=== PATIENT | male | born 1980 | race Caucasian/White ===

== ENCOUNTER → 2017-03-16 | Day surgery (SDC) | payer OTHER ==
[~2017-03-16] VITALS: Ht 182.9 cm; Wt 205.6 kg
[~2017-03-16] MED LIST: AMOXICILLIN500 MG PO; BYSTOLIC10 MG PO; LISINOPRIL-HCT1 EAC2 PO; NORCO 5-325 TA1 EACH PO; ULTRAM50 MG PO
--- NOTE | ~2017-03-16 | OR ---
PATIENT'S NAME: COLLIN BELLA [facility] AGE: 37 Y [address] ROOM: [place] [address] LOCATION: [facility] [place] ADMIT DATE: 03/16/2017 OR/Procedure Report DISCHARGE DATE: FAMILY PHYSICIAN: Geoffrey Rivas MD ATTENDING PHYSICIAN: Srini Garrett SURGEON: Srini Garrett MD RN COMPLIANCE: Sergey Paul PA-C. DATE OF PROCEDURE: 03/16/2017 PREOPERATIVE DIAGNOSIS: Recurrent incarcerated ventral hernia. POSTOPERATIVE DIAGNOSIS: Recurrent incarcerated ventral hernia. PROCEDURE: Robotic repair of recurrent incarcerated ventral hernia. FINDINGS: There were 2 defects present that appeared to be both superior and inferior to his previous repair. There was omentum incarcerated. A soft tissue density was also found of unclear etiology potentially representing previous surgical changes. This was excised. There was some concerns for infected material here, although after removal this did not appear grossly infected. ESTIMATED BLOOD LOSS: Less than 50 mL. COMPLICATIONS: None. INDICATIONS: The patient is a 37-year-old male, who has had previous laparoscopic surgery. He developed ventral hernia. This had apparently been repaired with mesh and this was in the periumbilical region. He had presented with pain with palpable hernia defect. We discussed repair with the patient, the risks, benefits, and alternatives including, but not limited to, bleeding, infection, mesh infection, bowel injury. He understood the risks and elected to proceed. DESCRIPTION OF PROCEDURE: The patient was taken to the operating room. He was supine, he was given IV sedation, subsequently intubated. His abdomen was prepped with ChloraPrep and sterilely draped. Using a Veress needle, the abdominal cavity was entered in the left upper quadrant, and after a small stab incision was created, pneumoperitoneum was induced. Needle placement was somewhat difficult due to his obesity. After pneumoperitoneum was induced, we introduced an 8 mm trocar in the left upper quadrant. We had some difficulty in initial placement. The camera was inserted and there did not appear to be injury to the bowel. Following this, 2 more trocars were positioned, an 8 mm mid abdominal or left mid abdominal and a 12 mm left lower quadrant port. The skin overlying the peritoneum was first anesthetized prior to making these PATIENT'S NAME: COLLIN BELLA [facility] AGE: 37 Y [address] ROOM: [place] [address] LOCATION: [facility] [place] ADMIT DATE: 03/16/2017 OR/Procedure Report DISCHARGE DATE: FAMILY PHYSICIAN: Geoffrey Rivas MD ATTENDING PHYSICIAN: Srini Garrett. These trocars were inserted under direct visualization. The robot was docked. Our working space was targeted with a camera grasper and scissors were inserted as well as a grasper. The hernia defect was immediately evident. There appeared to be omentum present within this. We were able to dissect around this circumferentially, slowly incising adhesions, ultimately able to reduce this, however, somewhat difficult on. Beginning the reduction process, there was a soft tissue density present. On grasping this, a small amount of aqknu-xq-aklaus material present initially concerning for a bowel injury; however, there was no bowel in the adhesions to this. The omentum was freed from this and ultimately a soft tissue density was present. This was quite firm, it was excised, placed in an EndoCatch bag, and brought up to the left lower quadrant trocar. This was opened and inspected on the back table. It did not appear to be grossly infected, potentially representing fat necrosis from previous operations, this was sent for pathology as well as cultures but with the initial appearance of the material, we were concerned about infection but after inspection on the back table, this did not appear grossly inspected. Because of this, we felt we could still place mesh. Once the contents were reduced, we selected an [address] hernia mesh. This was introduced through the left lower quadrant trocar. We introduced our suture as well. There were 2 defects present with a small skin bridge. The fascia was reapproximated with an 0 V-Loc suture. Once this was accomplished, the mesh was then placed covering the defect and secured circumferentially with 2-0 V-Loc suture. Mesh appeared to lie smoothly covering the defect. The operative field was again inspected. The omentum that was reduced appeared hemostatic. No evidence of bowel injury. The fascia of the 12 mm trocar site was approximated with 0 Vicryl suture using a suture passer device. The abdominal cavity was again inspected, appeared hemostatic. Pneumoperitoneum was then released. The trocars were removed. The trocar sites appeared hemostatic. The skin edges were all closed with 4-0 Monocryl suture. Steri-Strips and sterile dressings were placed. The patient was extubated and sent to recovery room. SRINI MD BENJI GUADALUPE/wade /[id number] d: t: 03/17/17 1005, OPERATIVE SUMMARY
== END ==
LOC: GSDC 03-12 13:00 → GPOC 03-12 13:00 → GSDC 08:42
PROC: 0WUF4JZ Supplement Abdominal Wall with Synthetic Substitute, Percutaneous Endoscopic Approach (ICD-10-PCS; principal; 2017-03-16)
PROC: 8E0W4CZ Robotic Assisted Procedure of Trunk Region, Percutaneous Endoscopic Approach (ICD-10-PCS; 2017-03-16)
DX: K43.0 Incisional hernia with obstruction, without gangrene (principal); I10 Essential (primary) hypertension; E78.5 Hyperlipidemia, unspecified; E66.01 Morbid (severe) obesity due to excess calories; J30.9 Allergic rhinitis, unspecified; G47.00 Insomnia, unspecified; F17.220 Nicotine dependence, chewing tobacco, uncomplicated; Z90.49 Acquired absence of other specified parts of digestive tract; Z98.890 Other specified postprocedural states; Z87.891 Personal history of nicotine dependence
CPT/HCPCS: C1781; J0131; J0690; J1170; J2001; J7030